=== PATIENT | female | born 1955 | race Caucasian/White ===

== ENCOUNTER 2017-03-14 08:01 | Outpatient (CLI) | payer OTHER | END 2017-03-14 13:26 | disposition home or self-care (01) | LOC: LAB 08:01 | DX: C50.112 Malignant neoplasm of central portion of left female breast (principal); Z85.3 Personal history of malignant neoplasm of breast; D51.3 Other dietary vitamin B12 deficiency anemia; K21.0 Gastro-esophageal reflux disease with esophagitis; E55.9 Vitamin D deficiency, unspecified ==

== ENCOUNTER 2017-03-19 07:36 | Outpatient (CLI) | payer OTHER | END 2017-03-19 15:00 | disposition home or self-care (01) | LOC: SONOGRAMA 07:36 | DX: E03.8 Other specified hypothyroidism (principal) ==

== ENCOUNTER 2017-04-09 07:20 | Outpatient (CLI) | payer OTHER | END 2017-04-09 15:00 | disposition home or self-care (01) | LOC: RAD 07:20 → LAB 07:20 → RAD 15:00 | DX: Z01.818 Encounter for other preprocedural examination (principal) ==

== ENCOUNTER 2017-04-09 07:21 | Outpatient (CLI) | payer OTHER | END 2017-04-09 15:00 | disposition home or self-care (01) | LOC: LAB 07:21 | DX: Z01.818 Encounter for other preprocedural examination (principal); C73 Malignant neoplasm of thyroid gland; D68.9 Coagulation defect, unspecified ==

== ENCOUNTER 2017-04-30 07:58 | Outpatient (CLI) | payer OTHER | END 2017-04-30 08:08 | disposition home or self-care (01) | LOC: LAB 07:58 | DX: C73 Malignant neoplasm of thyroid gland (principal); C50.112 Malignant neoplasm of central portion of left female breast; K21.0 Gastro-esophageal reflux disease with esophagitis; E55.9 Vitamin D deficiency, unspecified; E03.8 Other specified hypothyroidism; D51.3 Other dietary vitamin B12 deficiency anemia; D50.8 Other iron deficiency anemias; I10 Essential (primary) hypertension; Z85.3 Personal history of malignant neoplasm of breast ==

== ENCOUNTER 2017-05-27 07:04 | Outpatient (CLI) | payer OTHER | END 2017-05-27 07:10 | disposition home or self-care (01) | LOC: LAB 07:04 | DX: C73 Malignant neoplasm of thyroid gland (principal); E03.9 Hypothyroidism, unspecified ==

== ENCOUNTER 2017-06-13 07:42 | Outpatient (CLI) | payer OTHER | END 2017-06-13 10:55 | disposition home or self-care (01) | LOC: LAB 07:42 | DX: C73 Malignant neoplasm of thyroid gland (principal); C50.112 Malignant neoplasm of central portion of left female breast; Z85.3 Personal history of malignant neoplasm of breast; D51.3 Other dietary vitamin B12 deficiency anemia; K21.0 Gastro-esophageal reflux disease with esophagitis; E55.9 Vitamin D deficiency, unspecified; D50.8 Other iron deficiency anemias; D51.8 Other vitamin B12 deficiency anemias; I10 Essential (primary) hypertension; E06.3 Autoimmune thyroiditis; R97.0 Elevated carcinoembryonic antigen [CEA]; R97.8 Other abnormal tumor markers ==

== ENCOUNTER → 2017-07-23 06:50 | Outpatient (CLI) | payer OTHER | END | disposition home or self-care (01) | LOC: LAB 06:50 | DX: C73 Malignant neoplasm of thyroid gland (principal); E89.0 Postprocedural hypothyroidism ==

== ENCOUNTER 2017-08-03 08:05 | Outpatient (CLI) | payer OTHER | END 2017-08-03 08:58 | disposition home or self-care (01) | LOC: LAB 08:05 | DX: C73 Malignant neoplasm of thyroid gland (principal); E89.0 Postprocedural hypothyroidism ==

== ENCOUNTER 2017-08-07 12:57 | Outpatient (CLI) | payer OTHER | END 2017-08-07 13:00 | disposition home or self-care (01) | LOC: NUCLEAR 12:57 | DX: C73 Malignant neoplasm of thyroid gland (principal); E89.0 Postprocedural hypothyroidism | CPT/HCPCS: 79005; A9517 ==

== ENCOUNTER 2017-08-14 10:16 | Outpatient (CLI) | payer OTHER | END 2017-08-14 15:50 | disposition home or self-care (01) | LOC: NUCLEAR 10:16 | DX: C73 Malignant neoplasm of thyroid gland (principal); E89.0 Postprocedural hypothyroidism ==

== ENCOUNTER 2017-09-12 08:28 | Outpatient (CLI) | payer OTHER | END 2017-09-12 08:32 | disposition home or self-care (01) | LOC: LAB 08:28 | DX: E78.2 Mixed hyperlipidemia (principal); C73 Malignant neoplasm of thyroid gland; C50.112 Malignant neoplasm of central portion of left female breast; Z85.3 Personal history of malignant neoplasm of breast; D51.3 Other dietary vitamin B12 deficiency anemia; K21.0 Gastro-esophageal reflux disease with esophagitis; E55.9 Vitamin D deficiency, unspecified; D50.8 Other iron deficiency anemias; I10 Essential (primary) hypertension; K90.89 Other intestinal malabsorption; R97.0 Elevated carcinoembryonic antigen [CEA]; C18.9 Malignant neoplasm of colon, unspecified ==

== ENCOUNTER → 2017-12-12 08:22 | Outpatient (CLI) | payer OTHER | END | disposition home or self-care (01) | LOC: LAB 08:22 | DX: K21.0 Gastro-esophageal reflux disease with esophagitis (principal); R13.19 Other dysphagia; R10.32 Left lower quadrant pain; C73 Malignant neoplasm of thyroid gland; E89.0 Postprocedural hypothyroidism ==

== ENCOUNTER 2018-03-06 08:11 | Outpatient (CLI) | payer OTHER | END 2018-03-06 08:19 | disposition home or self-care (01) | LOC: LAB 08:11 | DX: C73 Malignant neoplasm of thyroid gland (principal); E89.0 Postprocedural hypothyroidism ==

== ENCOUNTER 2018-06-12 08:20 | Outpatient (CLI) | payer OTHER | END 2018-06-12 08:32 | disposition home or self-care (01) | LOC: LAB 08:20 | DX: C73 Malignant neoplasm of thyroid gland (principal); E89.0 Postprocedural hypothyroidism ==

== ENCOUNTER 2018-07-03 08:20 | Outpatient (CLI) | payer OTHER | END 2018-07-03 10:54 | disposition home or self-care (01) | LOC: LAB 08:20 | DX: E03.8 Other specified hypothyroidism (principal); C73 Malignant neoplasm of thyroid gland; C50.112 Malignant neoplasm of central portion of left female breast; Z85.3 Personal history of malignant neoplasm of breast; D51.3 Other dietary vitamin B12 deficiency anemia; K21.0 Gastro-esophageal reflux disease with esophagitis; E55.9 Vitamin D deficiency, unspecified; D50.8 Other iron deficiency anemias; D51.8 Other vitamin B12 deficiency anemias; I10 Essential (primary) hypertension; E78.2 Mixed hyperlipidemia; R97.0 Elevated carcinoembryonic antigen [CEA]; R97.8 Other abnormal tumor markers ==

== ENCOUNTER → 2018-07-23 07:00 | Outpatient (CLI) | payer OTHER | END | disposition home or self-care (01) | LOC: NUCLEAR 08-04 13:00 → LAB 07:00 | DX: C73 Malignant neoplasm of thyroid gland (principal); E89.0 Postprocedural hypothyroidism ==

== ENCOUNTER → 2018-11-13 08:51 | Outpatient (CLI) | payer OTHER | END | disposition home or self-care (01) | LOC: LAB 08:51 | DX: C73 Malignant neoplasm of thyroid gland (principal); C50.112 Malignant neoplasm of central portion of left female breast; Z85.3 Personal history of malignant neoplasm of breast; D51.3 Other dietary vitamin B12 deficiency anemia; K21.0 Gastro-esophageal reflux disease with esophagitis; E55.9 Vitamin D deficiency, unspecified; D50.8 Other iron deficiency anemias; D51.8 Other vitamin B12 deficiency anemias; I10 Essential (primary) hypertension; E03.8 Other specified hypothyroidism; R97.0 Elevated carcinoembryonic antigen [CEA]; R97.8 Other abnormal tumor markers ==

== ENCOUNTER → 2018-12-11 08:56 | Outpatient (CLI) | payer OTHER | END | disposition home or self-care (01) | LOC: LAB 08:56 | DX: C73 Malignant neoplasm of thyroid gland (principal); E89.0 Postprocedural hypothyroidism ==

== ENCOUNTER 2019-03-11 11:03 | Outpatient (CLI) | payer OTHER | END 2019-03-11 11:12 | disposition home or self-care (01) | LOC: NUCLEAR 11:03 | DX: M81.0 Age-related osteoporosis without current pathological fracture (principal) ==

== ENCOUNTER → 2019-03-19 07:34 | Outpatient (CLI) | payer OTHER | END | disposition home or self-care (01) | LOC: LAB 07:34 | DX: D64.89 Other specified anemias (principal); N39.0 Urinary tract infection, site not specified; R30.0 Dysuria; R10.84 Generalized abdominal pain; I10 Essential (primary) hypertension; R74.0 Nonspecific elevation of levels of transaminase and lactic acid dehydrogenase [LDH]; E03.8 Other specified hypothyroidism; R63.5 Abnormal weight gain; R63.4 Abnormal weight loss; E78.49 Other hyperlipidemia; R07.89 Other chest pain; E55.9 Vitamin D deficiency, unspecified; R80.8 Other proteinuria; Z12.11 Encounter for screening for malignant neoplasm of colon; E11.9 Type 2 diabetes mellitus without complications; E16.2 Hypoglycemia, unspecified; C73 Malignant neoplasm of thyroid gland; C50.112 Malignant neoplasm of central portion of left female breast; Z85.3 Personal history of malignant neoplasm of breast; D51.3 Other dietary vitamin B12 deficiency anemia; K21.0 Gastro-esophageal reflux disease with esophagitis; D50.8 Other iron deficiency anemias; D51.8 Other vitamin B12 deficiency anemias; C25.9 Malignant neoplasm of pancreas, unspecified; C22.9 Malignant neoplasm of liver, not specified as primary or secondary ==

== ENCOUNTER 2019-06-07 07:36 | Outpatient (CLI) | payer OTHER | END 2019-06-07 07:56 | disposition home or self-care (01) | LOC: LAB 07:36 | DX: C73 Malignant neoplasm of thyroid gland (principal); E89.0 Postprocedural hypothyroidism ==

== ENCOUNTER 2019-08-11 06:58 | Outpatient (CLI) | payer OTHER | END 2019-08-11 07:05 | disposition home or self-care (01) | LOC: LAB 06:58 | PROVIDERS: ATTEND Internal Medicine Hematology & Oncology | DX: D50.8 Other iron deficiency anemias (principal); I10 Essential (primary) hypertension; D51.8 Other vitamin B12 deficiency anemias; E55.9 Vitamin D deficiency, unspecified; E03.8 Other specified hypothyroidism; C50.919 Malignant neoplasm of unspecified site of unspecified female breast; R97.8 Other abnormal tumor markers; C25.9 Malignant neoplasm of pancreas, unspecified; R97.0 Elevated carcinoembryonic antigen [CEA]; C73 Malignant neoplasm of thyroid gland; C50.112 Malignant neoplasm of central portion of left female breast; Z85.3 Personal history of malignant neoplasm of breast; K21.0 Gastro-esophageal reflux disease with esophagitis ==

== ENCOUNTER 2019-08-12 07:04 | Outpatient (CLI) | payer OTHER | END 2019-08-12 07:12 | disposition home or self-care (01) | LOC: RAD 07:04 → MAMO-SONO 07:15 | PROVIDERS: ATTEND Internal Medicine Hematology & Oncology | DX: C73 Malignant neoplasm of thyroid gland (principal); C50.112 Malignant neoplasm of central portion of left female breast; Z85.3 Personal history of malignant neoplasm of breast; D51.3 Other dietary vitamin B12 deficiency anemia; K21.0 Gastro-esophageal reflux disease with esophagitis; E55.9 Vitamin D deficiency, unspecified; Z12.31 Encounter for screening mammogram for malignant neoplasm of breast; Z87.898 Personal history of other specified conditions ==

== ENCOUNTER 2019-08-16 08:53 | Outpatient (CLI) | payer OTHER | END 2019-08-16 09:13 | disposition home or self-care (01) | LOC: TOM 08:53 | PROVIDERS: ATTEND Internal Medicine Sports Medicine | DX: K56.600 Partial intestinal obstruction, unspecified as to cause (principal); Z86.010 Personal history of colon polyps ==

== ENCOUNTER 2019-09-14 07:00 | Outpatient (CLI) | payer OTHER | END 2019-09-14 07:04 | disposition home or self-care (01) | LOC: LAB 07:00 | PROVIDERS: ATTEND Internal Medicine | DX: E16.1 Other hypoglycemia (principal); R80.8 Other proteinuria; E78.2 Mixed hyperlipidemia; R63.5 Abnormal weight gain; E88.89 Other specified metabolic disorders; R53.81 Other malaise; R43.0 Anosmia; R30.0 Dysuria; E55.9 Vitamin D deficiency, unspecified; R19.5 Other fecal abnormalities ==

== ENCOUNTER → 2019-11-19 07:35 | Outpatient (CLI) | payer OTHER | END | disposition home or self-care (01) | LOC: LAB 07:35 | PROVIDERS: ATTEND Internal Medicine Hematology & Oncology | DX: D50.8 Other iron deficiency anemias (principal); I10 Essential (primary) hypertension; E03.8 Other specified hypothyroidism; C50.919 Malignant neoplasm of unspecified site of unspecified female breast; R97.8 Other abnormal tumor markers; R97.0 Elevated carcinoembryonic antigen [CEA]; C73 Malignant neoplasm of thyroid gland; C50.112 Malignant neoplasm of central portion of left female breast; Z85.3 Personal history of malignant neoplasm of breast; D51.3 Other dietary vitamin B12 deficiency anemia; K21.00 Gastro-esophageal reflux disease with esophagitis, without bleeding; E55.9 Vitamin D deficiency, unspecified ==

== ENCOUNTER → 2019-12-31 08:11 | Outpatient (CLI) | payer OTHER | END | disposition home or self-care (01) | LOC: LAB 08:11 | PROVIDERS: ATTEND Podiatrist Foot Surgery | DX: M21.611 Bunion of right foot (principal); M21.612 Bunion of left foot; K76.89 Other specified diseases of liver ==

== ENCOUNTER 2020-02-20 12:59 | Outpatient (CLI) | payer OTHER | END 2020-02-20 13:05 | disposition home or self-care (01) | LOC: LAB 12:59 | PROVIDERS: ATTEND Internal Medicine Sports Medicine | DX: C73 Malignant neoplasm of thyroid gland (principal); E89.0 Postprocedural hypothyroidism ==

== ENCOUNTER → 2020-03-24 | Outpatient (CLI) | payer OTHER | END | disposition home or self-care (01) | LOC: LAB 07:20 | PROVIDERS: ATTEND Internal Medicine Hematology & Oncology | DX: D50.8 Other iron deficiency anemias (principal); I10 Essential (primary) hypertension; R74.02 Elevation of levels of lactic acid dehydrogenase [LDH]; K76.89 Other specified diseases of liver; E03.8 Other specified hypothyroidism; C50.919 Malignant neoplasm of unspecified site of unspecified female breast; R97.8 Other abnormal tumor markers; R97.0 Elevated carcinoembryonic antigen [CEA]; C73 Malignant neoplasm of thyroid gland; C50.112 Malignant neoplasm of central portion of left female breast; Z85.3 Personal history of malignant neoplasm of breast; D51.3 Other dietary vitamin B12 deficiency anemia; K21.00 Gastro-esophageal reflux disease with esophagitis, without bleeding; E55.9 Vitamin D deficiency, unspecified; D64.89 Other specified anemias; N39.0 Urinary tract infection, site not specified; R30.0 Dysuria; R10.84 Generalized abdominal pain; R74.01 Elevation of levels of liver transaminase levels; R63.5 Abnormal weight gain; R63.4 Abnormal weight loss; E78.49 Other hyperlipidemia; R80.8 Other proteinuria; Z12.11 Encounter for screening for malignant neoplasm of colon; E11.9 Type 2 diabetes mellitus without complications; E16.1 Other hypoglycemia ==

== ENCOUNTER → 2020-05-15 08:33 | Outpatient (CLI) | payer OTHER | END | disposition home or self-care (01) | LOC: LAB 08:33 | PROVIDERS: ATTEND Internal Medicine Sports Medicine | DX: I10 Essential (primary) hypertension (principal); E03.8 Other specified hypothyroidism; E78.89 Other lipoprotein metabolism disorders; E11.65 Type 2 diabetes mellitus with hyperglycemia ==

== ENCOUNTER 2020-05-15 09:15 | Outpatient (CLI) | payer OTHER | END 2020-05-15 09:25 | disposition home or self-care (01) | LOC: SONOGRAMA 09:15 | PROVIDERS: ATTEND Internal Medicine Sports Medicine | DX: C73 Malignant neoplasm of thyroid gland (principal) ==

== ENCOUNTER 2020-08-22 07:47 | Outpatient (CLI) | payer OTHER | END 2020-08-22 07:55 | disposition home or self-care (01) | LOC: MAMO-SONO 07:47 | PROVIDERS: ATTEND Internal Medicine Hematology & Oncology | DX: R10.84 Generalized abdominal pain (principal); D51.3 Other dietary vitamin B12 deficiency anemia; C73 Malignant neoplasm of thyroid gland; C50.112 Malignant neoplasm of central portion of left female breast; Z85.3 Personal history of malignant neoplasm of breast; E55.9 Vitamin D deficiency, unspecified; K21.00 Gastro-esophageal reflux disease with esophagitis, without bleeding ==

== ENCOUNTER → 2020-10-26 06:24 | Outpatient (CLI) | payer OTHER | END | disposition home or self-care (01) | LOC: LAB 06:24 | PROVIDERS: ATTEND Internal Medicine Hematology & Oncology | DX: C73 Malignant neoplasm of thyroid gland (principal); K76.89 Other specified diseases of liver; D50.8 Other iron deficiency anemias; D51.8 Other vitamin B12 deficiency anemias; E55.9 Vitamin D deficiency, unspecified; E03.8 Other specified hypothyroidism; C50.919 Malignant neoplasm of unspecified site of unspecified female breast; R97.8 Other abnormal tumor markers; R97.0 Elevated carcinoembryonic antigen [CEA]; C50.112 Malignant neoplasm of central portion of left female breast; Z85.3 Personal history of malignant neoplasm of breast; D51.3 Other dietary vitamin B12 deficiency anemia; K21.00 Gastro-esophageal reflux disease with esophagitis, without bleeding; D64.89 Other specified anemias; N39.0 Urinary tract infection, site not specified; R10.84 Generalized abdominal pain; R63.5 Abnormal weight gain; R63.4 Abnormal weight loss; R80.8 Other proteinuria; R73.09 Other abnormal glucose ==

== ENCOUNTER 2020-12-05 07:13 | Outpatient (CLI) | payer OTHER | END 2020-12-05 07:14 | disposition home or self-care (01) | LOC: NUCLEAR 07:13 | PROVIDERS: ATTEND Internal Medicine Hematology & Oncology | DX: K82.9 Disease of gallbladder, unspecified (principal) | CPT/HCPCS: 78226; A9537; J2805 ==

== ENCOUNTER 2021-04-19 06:15 | Outpatient (CLI) | payer OTHER | END 2021-04-19 06:16 | disposition home or self-care (01) | LOC: LAB 06:15 | PROVIDERS: ATTEND Internal Medicine Sports Medicine | DX: C73 Malignant neoplasm of thyroid gland (principal); E89.0 Postprocedural hypothyroidism; D50.8 Other iron deficiency anemias; I10 Essential (primary) hypertension; R74.02 Elevation of levels of lactic acid dehydrogenase [LDH]; K76.89 Other specified diseases of liver; D51.8 Other vitamin B12 deficiency anemias; E55.9 Vitamin D deficiency, unspecified; C50.919 Malignant neoplasm of unspecified site of unspecified female breast; R97.8 Other abnormal tumor markers; R97.0 Elevated carcinoembryonic antigen [CEA]; C50.112 Malignant neoplasm of central portion of left female breast; D51.3 Other dietary vitamin B12 deficiency anemia; K21.00 Gastro-esophageal reflux disease with esophagitis, without bleeding; Z85.3 Personal history of malignant neoplasm of breast ==

== ENCOUNTER 2021-04-30 10:47 | Outpatient (CLI) | payer OTHER | END 2021-04-30 10:59 | disposition home or self-care (01) | LOC: SONOGRAMA 10:47 | PROVIDERS: ATTEND Internal Medicine Sports Medicine | DX: C73 Malignant neoplasm of thyroid gland (principal) ==

== ENCOUNTER 2021-07-02 06:53 | Outpatient (CLI) | payer OTHER | END 2021-07-02 07:03 | disposition home or self-care (01) | LOC: LAB 06:53 | PROVIDERS: ATTEND Internal Medicine Sports Medicine | DX: D64.9 Anemia, unspecified (principal); E11.9 Type 2 diabetes mellitus without complications; I10 Essential (primary) hypertension; E03.8 Other specified hypothyroidism; E78.2 Mixed hyperlipidemia ==

== ENCOUNTER 2021-09-05 06:54 | Outpatient (CLI) | payer OTHER | END 2021-09-05 07:00 | disposition home or self-care (01) | LOC: LAB 06:54 | PROVIDERS: ATTEND Internal Medicine Hematology & Oncology | DX: D50.8 Other iron deficiency anemias (principal); I10 Essential (primary) hypertension; R74.02 Elevation of levels of lactic acid dehydrogenase [LDH]; K76.89 Other specified diseases of liver; D51.8 Other vitamin B12 deficiency anemias; E55.9 Vitamin D deficiency, unspecified; E03.8 Other specified hypothyroidism; C50.919 Malignant neoplasm of unspecified site of unspecified female breast; R97.8 Other abnormal tumor markers; R97.0 Elevated carcinoembryonic antigen [CEA]; C73 Malignant neoplasm of thyroid gland; C50.112 Malignant neoplasm of central portion of left female breast; D51.3 Other dietary vitamin B12 deficiency anemia; K21.00 Gastro-esophageal reflux disease with esophagitis, without bleeding; Z85.3 Personal history of malignant neoplasm of breast ==

== ENCOUNTER 2022-03-22 07:37 | Outpatient (CLI) | payer OTHER | END 2022-03-22 07:39 | disposition home or self-care (01) | LOC: LAB 07:37 | PROVIDERS: ATTEND Internal Medicine Hematology & Oncology | DX: D50.8 Other iron deficiency anemias (principal); I10 Essential (primary) hypertension; R74.02 Elevation of levels of lactic acid dehydrogenase [LDH]; K76.89 Other specified diseases of liver; D51.8 Other vitamin B12 deficiency anemias; E55.9 Vitamin D deficiency, unspecified; E03.8 Other specified hypothyroidism; C50.919 Malignant neoplasm of unspecified site of unspecified female breast; R97.8 Other abnormal tumor markers; R97.0 Elevated carcinoembryonic antigen [CEA]; C73 Malignant neoplasm of thyroid gland; C50.112 Malignant neoplasm of central portion of left female breast; Z85.3 Personal history of malignant neoplasm of breast; D51.3 Other dietary vitamin B12 deficiency anemia; K21.00 Gastro-esophageal reflux disease with esophagitis, without bleeding ==

== ENCOUNTER 2022-05-24 08:01 | Outpatient (CLI) | payer OTHER | END 2022-05-24 08:04 | disposition home or self-care (01) | LOC: LAB 08:01 | PROVIDERS: ATTEND Internal Medicine Hematology & Oncology | DX: N39.0 Urinary tract infection, site not specified (principal); C73 Malignant neoplasm of thyroid gland; C50.112 Malignant neoplasm of central portion of left female breast; D51.3 Other dietary vitamin B12 deficiency anemia; K21.00 Gastro-esophageal reflux disease with esophagitis, without bleeding; E55.9 Vitamin D deficiency, unspecified ==

== ENCOUNTER → 2022-06-13 07:01 | Outpatient (CLI) | payer OTHER | END | disposition home or self-care (01) | LOC: LAB 07:01 | DX: D64.9 Anemia, unspecified (principal); N39.0 Urinary tract infection, site not specified; R30.0 Dysuria; E78.5 Hyperlipidemia, unspecified; E53.8 Deficiency of other specified B group vitamins; R80.9 Proteinuria, unspecified; Z12.11 Encounter for screening for malignant neoplasm of colon; K92.1 Melena; R73.09 Other abnormal glucose ==

== ENCOUNTER 2022-07-09 06:44 | Outpatient (CLI) | payer OTHER | END 2022-07-09 08:30 | disposition home or self-care (01) | LOC: LAB 06:44 | PROVIDERS: ATTEND Internal Medicine Sports Medicine | DX: C73 Malignant neoplasm of thyroid gland (principal); E89.0 Postprocedural hypothyroidism ==

== ENCOUNTER → 2022-09-13 08:02 | Outpatient (CLI) | payer OTHER | END | disposition home or self-care (01) | LOC: LAB 08:02 | PROVIDERS: ATTEND Internal Medicine | DX: D64.9 Anemia, unspecified (principal); N39.0 Urinary tract infection, site not specified; R30.0 Dysuria; R10.9 Unspecified abdominal pain; E53.8 Deficiency of other specified B group vitamins; R74.02 Elevation of levels of lactic acid dehydrogenase [LDH]; R80.9 Proteinuria, unspecified; R73.09 Other abnormal glucose; E78.00 Pure hypercholesterolemia, unspecified ==

== ENCOUNTER 2022-11-01 07:40 | Outpatient (CLI) | payer OTHER ==
[2022-11-01 09:41] LABS: HEMATOCRIT 35.9 % (36.0-45.00); HEMOGLOBIN 12.1 g/dL (12.0-15.00); MEAN CELL VOLUME 89.6 fL (80.00-100.00); MEAN CORPUSCULAR HEMOGLOBIN 30.1 pg (27.00-32.0); MEAN CORPUSCULAR HGB CONC 33.6 g/dl (32.0-36.0); PLATELET COUNT 207 K/uL (150-450); RED BLOOD COUNT 4.01 M/uL (4.00-6.00); RED CELL DISTRIBUTION WIDTH 14.8 % (11.5-14.5)
[2022-11-01 10:30] LABS: ALBUMIN 3.5 gm/dL (3.4-5.0); BILIRUBIN TOTAL 0.51 mg/dL (0.3-1.2); CALCIUM 8.9 mg/dL (8.5-10.1); CREATININE SERUM 0.73 mg/dL (0.55-1.02); GFR 79.28; GLOBULINA 3.6 G/DL (2.4-3.5); POTASSIUM 4.36 mEq/L (3.5-5.1); TOTAL PROTEIN 7.1 gm/dL (6.4-8.2)
[2022-11-03 11:47] LABS: FOLIC ACID > 20.00 ng/ml (4.78-20)
[2022-11-03 11:48] LABS: VITAMIN D3 25 HYDROXY 63.09 ng/ml (30-120)
== END 2022-11-01 07:41 | disposition home or self-care (01) ==
LOC: LAB 07:40
PROVIDERS: ATTEND Internal Medicine Hematology & Oncology
DX: D50.8 Other iron deficiency anemias (principal); I10 Essential (primary) hypertension; R74.02 Elevation of levels of lactic acid dehydrogenase [LDH]; K76.89 Other specified diseases of liver; D51.8 Other vitamin B12 deficiency anemias; E55.9 Vitamin D deficiency, unspecified; E03.8 Other specified hypothyroidism; C50.919 Malignant neoplasm of unspecified site of unspecified female breast; R97.8 Other abnormal tumor markers; R97.0 Elevated carcinoembryonic antigen [CEA]; C73 Malignant neoplasm of thyroid gland; C50.112 Malignant neoplasm of central portion of left female breast; Z85.3 Personal history of malignant neoplasm of breast; D51.3 Other dietary vitamin B12 deficiency anemia; K21.00 Gastro-esophageal reflux disease with esophagitis, without bleeding

== ENCOUNTER 2022-12-12 07:15 | Outpatient (CLI) | payer OTHER ==
[2022-12-12 08:20] LABS: HEMATOCRIT 36.3 % (36.0-45.00); HEMOGLOBIN 11.9 g/dL (12.0-15.00); MEAN CELL VOLUME 91.5 fL (80.00-100.00); MEAN CORPUSCULAR HEMOGLOBIN 29.9 pg (27.00-32.0); MEAN CORPUSCULAR HGB CONC 32.7 g/dl (32.0-36.0); PLATELET COUNT 231 K/uL (150-450); RED BLOOD COUNT 3.96 M/uL (4.00-6.00); RED CELL DISTRIBUTION WIDTH 14.6 % (11.5-14.5)
[2022-12-12 09:05] LABS: CALCIUM 8.7 mg/dL (8.5-10.1); CHOL HDL RATIO 3.8 (0-5.0); CREATININE SERUM 0.74 mg/dL (0.55-1.02); GFR 78.04; POTASSIUM 4.51 mEq/L (3.5-5.1); T4 FREE 1.09 NG/ML (0.76-1.46); TSH 3.02 uIU/mL (0.358-3.74)
== END 2022-12-12 07:16 | disposition home or self-care (01) ==
LOC: LAB 07:15
PROVIDERS: ATTEND Internal Medicine Sports Medicine
DX: E89.0 Postprocedural hypothyroidism (principal); D64.9 Anemia, unspecified; R10.9 Unspecified abdominal pain; I10 Essential (primary) hypertension; E78.5 Hyperlipidemia, unspecified; E55.9 Vitamin D deficiency, unspecified; Z88.0 Allergy status to penicillin

== ENCOUNTER → 2023-03-28 07:33 | Outpatient (CLI) | payer OTHER ==
[2023-03-28 10:23] LABS: HEMATOCRIT 36.4 % (36.0-45.00); HEMOGLOBIN 12.1 g/dL (12.0-15.00); MEAN CELL VOLUME 90.7 fL (80.00-100.00); MEAN CORPUSCULAR HEMOGLOBIN 30.2 pg (27.00-32.0); MEAN CORPUSCULAR HGB CONC 33.4 g/dl (32.0-36.0); PLATELET COUNT 204 K/uL (150-450); RED BLOOD COUNT 4.02 M/uL (4.00-6.00); RED CELL DISTRIBUTION WIDTH 14.8 % (11.5-14.5)
[2023-03-28 11:25] LABS: ALBUMIN 3.7 gm/dL (3.4-5.0); BILIRUBIN TOTAL 0.41 mg/dL (0.3-1.2); CALCIUM 8.7 mg/dL (8.5-10.1); CREATININE SERUM 0.7 mg/dL (0.55-1.02); GFR 82.97; GLOBULINA 3.3 G/DL (2.4-3.5); POTASSIUM 4.29 mEq/L (3.5-5.1); T4 FREE 1.11 NG/ML (0.76-1.46); TSH 1.79 uIU/mL (0.358-3.74)
[2023-03-30 11:48] LABS: FOLIC ACID 19.77 ng/ml (4.78-20); VITAMIN D3 25 HYDROXY 65.84 ng/ml (30-120)
== END | disposition home or self-care (01) ==
LOC: LAB 07:33
PROVIDERS: ATTEND Internal Medicine Hematology & Oncology
DX: C73 Malignant neoplasm of thyroid gland (principal); C50.112 Malignant neoplasm of central portion of left female breast; Z85.3 Personal history of malignant neoplasm of breast; D51.3 Other dietary vitamin B12 deficiency anemia; K21.00 Gastro-esophageal reflux disease with esophagitis, without bleeding; E55.9 Vitamin D deficiency, unspecified; D50.8 Other iron deficiency anemias; K76.89 Other specified diseases of liver; D51.8 Other vitamin B12 deficiency anemias; E03.8 Other specified hypothyroidism; R97.1 Elevated cancer antigen 125 [CA 125]

== ENCOUNTER 2023-10-19 07:31 | Outpatient (CLI) | payer OTHER ==
[2023-10-19 08:42] LABS: HEMATOCRIT 35.8 % (36.0-45.00); HEMOGLOBIN 11.7 g/dL (12.0-15.00); MEAN CELL VOLUME 93.7 fL (80.00-100.00); MEAN CORPUSCULAR HEMOGLOBIN 30.6 pg (27.00-32.0); MEAN CORPUSCULAR HGB CONC 32.7 g/dl (32.0-36.0); PLATELET COUNT 153 K/uL (150-450); RED BLOOD COUNT 3.82 M/uL (4.00-6.00)
[2023-10-19 09:41] LABS: ALBUMIN 3.5 gm/dL (3.4-5.0); BILIRUBIN TOTAL 0.5 mg/dL (0.3-1.2); CALCIUM 8.9 mg/dL (8.5-10.1); CREATININE SERUM 0.69 mg/dL (0.55-1.02); GFR 84.36; GLOBULINA 3.6 G/DL (2.4-3.5); POTASSIUM 4.6 mEq/L (3.5-5.1); TOTAL PROTEIN 7.1 gm/dL (6.4-8.2)
[2023-10-19 14:02] LABS: FOLIC ACID 17.02 ng/ml (4.78-20); VITAMIN D3 25 HYDROXY 76.16 ng/ml (30-120)
[2023-10-19 21:07] LABS: T4 FREE 1.03 NG/ML (0.76-1.46); TSH 1.82 uIU/mL (0.358-3.74)
[2023-10-20 09:11] LABS: CA 125 5.8 U/mL (0.0-38.1); CA 15-3 24.7 U/mL (0.0-25.0)
== END 2023-10-19 07:36 | disposition home or self-care (01) ==
LOC: LAB 07:31
PROVIDERS: ATTEND Internal Medicine Hematology & Oncology
DX: C73 Malignant neoplasm of thyroid gland (principal); C50.112 Malignant neoplasm of central portion of left female breast; Z85.3 Personal history of malignant neoplasm of breast; D51.3 Other dietary vitamin B12 deficiency anemia; E55.9 Vitamin D deficiency, unspecified; I10 Essential (primary) hypertension; R74.02 Elevation of levels of lactic acid dehydrogenase [LDH]; K76.89 Other specified diseases of liver; D50.8 Other iron deficiency anemias; C50.919 Malignant neoplasm of unspecified site of unspecified female breast; R97.8 Other abnormal tumor markers

== ENCOUNTER 2023-11-11 10:29 | Outpatient (CLI) | payer OTHER | END 2023-11-11 10:42 | disposition home or self-care (01) | LOC: MRI 10:29 | PROVIDERS: ATTEND Internal Medicine Hematology & Oncology | DX: C73 Malignant neoplasm of thyroid gland (principal); C50.112 Malignant neoplasm of central portion of left female breast; Z85.3 Personal history of malignant neoplasm of breast; D51.3 Other dietary vitamin B12 deficiency anemia; K21.00 Gastro-esophageal reflux disease with esophagitis, without bleeding; E55.9 Vitamin D deficiency, unspecified | CPT/HCPCS: 72196; Q9965 ==

== ENCOUNTER 2023-11-26 07:30 | Outpatient (CLI) | payer OTHER ==
[2023-11-26 08:14] LABS: HEMATOCRIT 36.1 % (36.0-45.00); HEMOGLOBIN 12.2 g/dL (12.0-15.00); MEAN CELL VOLUME 92.1 fL (80.00-100.00); MEAN CORPUSCULAR HGB CONC 33.7 g/dl (32.0-36.0); PLATELET COUNT 229 K/uL (150-450); RED BLOOD COUNT 3.93 M/uL (4.00-6.00); RED CELL DISTRIBUTION WIDTH 14.7 % (11.5-14.5)
[2023-11-26 08:43] LABS: PH,URINE 6.5 (5.0-8.0); URINE APPEARANCE Clear; URINE BILIRRUBIN Negative (NEGATIVE); URINE BLOOD Negative; URINE COLOR Yellow; URINE GLUCOSE Negative (NEGATIVE); URINE KETONE Negative (NEGATIVE); URINE LEUKOCYTE Negative; URINE NITRATE Negative; URINE PROTEIN Negative (NEGATIVE); URINE UROBILINOGEN 0.2 E.U./dl
[2023-11-26 08:47] LABS: URINE BACTERIA 20.1 uL (0.0-1933)
[2023-11-26 09:07] LABS: URINE RBC 1.6 uL (0.0-20.8); URINE WBC 0.7 uL (0.0-23.2)
[2023-11-26 09:37] LABS: ALBUMIN 3.7 gm/dL (3.4-5.0); BILIRUBIN TOTAL 0.46 mg/dL (0.3-1.2); CALCIUM 8.7 mg/dL (8.5-10.1); CHOL HDL RATIO 3.6 (0-5.0); CREATININE SERUM 0.68 mg/dL (0.55-1.02); GFR 85.79; GLOBULINA 3.5 G/DL (2.4-3.5); POTASSIUM 4.51 mEq/L (3.5-5.1); TOTAL PROTEIN 7.2 gm/dL (6.4-8.2); TSH 3.72 uIU/mL (0.358-3.74)
[2023-11-26 09:57] LABS: C-REACTIVE PROTEIN 0.71 MG/DL (0.00-0.29)
== END 2023-11-26 07:34 | disposition home or self-care (01) ==
LOC: LAB 07:30
PROVIDERS: ATTEND Internal Medicine
DX: D64.9 Anemia, unspecified (principal); N39.0 Urinary tract infection, site not specified; R10.9 Unspecified abdominal pain; E03.9 Hypothyroidism, unspecified; E78.5 Hyperlipidemia, unspecified; R07.9 Chest pain, unspecified; E11.9 Type 2 diabetes mellitus without complications; I10 Essential (primary) hypertension

== ENCOUNTER 2024-01-01 07:30 | Outpatient (CLI) | payer OTHER ==
[2024-01-01 08:36] LABS: HEMATOCRIT 35.9 % (36.0-45.00); HEMOGLOBIN 11.9 g/dL (12.0-15.00); MEAN CELL VOLUME 93.7 fL (80.00-100.00); MEAN CORPUSCULAR HGB CONC 33.1 g/dl (32.0-36.0); PLATELET COUNT 217 K/uL (150-450); RED BLOOD COUNT 3.83 M/uL (4.00-6.00); RED CELL DISTRIBUTION WIDTH 14.9 % (11.5-14.5)
[2024-01-01 08:39] LABS: URINE APPEARANCE Clear; URINE BILIRRUBIN Negative (NEGATIVE); URINE BLOOD Negative; URINE COLOR Yellow; URINE GLUCOSE Negative (NEGATIVE); URINE KETONE Negative (NEGATIVE); URINE LEUKOCYTE Negative; URINE NITRATE Negative; URINE PROTEIN Negative (NEGATIVE); URINE UROBILINOGEN 0.2 E.U./dl
[2024-01-01 08:46] LABS: URINE BACTERIA 2.5 uL (0.0-1933); URINE EPITHELIAL CELLS 0.6 uL (0.0-38.8); URINE RBC 1.5 uL (0.0-20.8); URINE WBC 0.3 uL (0.0-23.2)
[2024-01-01 09:29] LABS: ALBUMIN 3.7 gm/dL (3.4-5.0); BILIRUBIN TOTAL 0.4 mg/dL (0.3-1.2); CALCIUM 8.6 mg/dL (8.5-10.1); CHOL HDL RATIO 2.7 (0-5.0); CREATININE SERUM 0.68 mg/dL (0.55-1.02); GFR 85.54; GLOBULINA 3.4 G/DL (2.4-3.5); POTASSIUM 4.54 mEq/L (3.5-5.1); T4 FREE 1.05 NG/ML (0.76-1.46); TOTAL PROTEIN 7.1 gm/dL (6.4-8.2); TSH 3.2 uIU/mL (0.358-3.74)
== END 2024-01-01 07:34 | disposition home or self-care (01) ==
LOC: LAB 07:30
PROVIDERS: ATTEND Internal Medicine Sports Medicine
DX: D64.9 Anemia, unspecified (principal); E11.9 Type 2 diabetes mellitus without complications; E78.2 Mixed hyperlipidemia; I10 Essential (primary) hypertension; E03.8 Other specified hypothyroidism; E55.9 Vitamin D deficiency, unspecified

== ENCOUNTER → 2024-06-03 08:32 | Outpatient (CLI) | payer OTHER ==
[2024-06-03 09:31] LABS: HEMATOCRIT 36.4 % (36.0-45.00); HEMOGLOBIN 12.1 g/dL (12.0-15.00); MEAN CELL VOLUME 93.3 fL (80.00-100.00); MEAN CORPUSCULAR HGB CONC 33.3 g/dl (32.0-36.0); PLATELET COUNT 207 K/uL (150-450); RED CELL DISTRIBUTION WIDTH 14.5 % (11.5-14.5)
[2024-06-03 10:10] LABS: ALBUMIN 3.8 gm/dL (3.4-5.0); BILIRUBIN TOTAL 0.4 mg/dL (0.3-1.2); CALCIUM 8.9 mg/dL (8.5-10.1); CREATININE SERUM 0.71 mg/dL (0.55-1.02); GFR 81.38; GLOBULINA 3.7 G/DL (2.4-3.5); POTASSIUM 5.14 mEq/L (3.5-5.1); T4 FREE 1.11 NG/ML (0.76-1.46); TOTAL PROTEIN 7.5 gm/dL (6.4-8.2); TSH 1.33 uIU/mL (0.358-3.74)
[2024-06-03 10:33] LABS: FOLIC ACID 19.84 ng/ml (4.78-20); VITAMIN D3 25 HYDROXY 90.52 ng/ml (30-120)
[2024-06-04 09:07] LABS: CA 125 11.6 U/mL (0.0-38.1); CA 15-3 25.7 U/mL (0.0-25.0); CA 19-9 7 U/mL (0-35)
== END | disposition home or self-care (01) ==
LOC: LAB 08:32
PROVIDERS: ATTEND Internal Medicine Hematology & Oncology
DX: C73 Malignant neoplasm of thyroid gland (principal); C50.112 Malignant neoplasm of central portion of left female breast; Z85.3 Personal history of malignant neoplasm of breast; D51.3 Other dietary vitamin B12 deficiency anemia; E55.9 Vitamin D deficiency, unspecified; D50.8 Other iron deficiency anemias; I10 Essential (primary) hypertension; R74.02 Elevation of levels of lactic acid dehydrogenase [LDH]; K76.89 Other specified diseases of liver; D51.8 Other vitamin B12 deficiency anemias; C50.919 Malignant neoplasm of unspecified site of unspecified female breast; R97.8 Other abnormal tumor markers; C56.9 Malignant neoplasm of unspecified ovary; R97.1 Elevated cancer antigen 125 [CA 125]; R97.0 Elevated carcinoembryonic antigen [CEA]; E78.00 Pure hypercholesterolemia, unspecified

== ENCOUNTER 2024-06-09 09:23 | Outpatient (CLI) | payer OTHER | END 2024-06-09 09:24 | disposition home or self-care (01) | LOC: NUCLEAR 09:23 | PROVIDERS: ATTEND Internal Medicine Hematology & Oncology | DX: K82.9 Disease of gallbladder, unspecified (principal) | CPT/HCPCS: 78227; A9537 ==

== ENCOUNTER 2024-08-25 07:47 | Outpatient (CLI) | payer OTHER | END 2024-08-25 07:58 | disposition home or self-care (01) | LOC: TOM 07:47 | PROVIDERS: ATTEND Internal Medicine Gastroenterology | DX: D13.5 Benign neoplasm of extrahepatic bile ducts (principal); K22.2 Esophageal obstruction; K31.7 Polyp of stomach and duodenum; K21.00 Gastro-esophageal reflux disease with esophagitis, without bleeding; Z86.0101 Personal history of adenomatous and serrated colon polyps; K56.600 Partial intestinal obstruction, unspecified as to cause ==

== ENCOUNTER → 2024-11-12 07:47 | Outpatient (CLI) | payer OTHER ==
[2024-11-12 10:52] LABS: BASO % 1.1 % (0.1-1.2); EOS # 0.05 (0.04-0.54); EOS % 1.1 % (0.7-7.0); LYMPH # 1.83 (1.18-3.74); LYMPH % 40.4 % (19.3-53.1); MEAN PLATELET VOLUME 13.10 fl (9.4-12.4); MONO # 0.39 (0.24-0.82); MONO % 8.6 % (4.7-12.5); NEUT # 2.15 (1.56-6.13); NEUT % 47.5 % (34.0-71.1); RED CELL DISTRIBUTION WIDTH 13.1 % (11.6-14.4)
[2024-11-12 11:35] LABS: ALT/SGPT 21.0 U/L (12-78); AST/SGOT 15.0 U/L (15-37); BILIRUBIN TOTAL 0.49 mg/dL (0.3-1.2); BUN CREA RATIO 18.0 (7.0-25.0); CREATININE SERUM 0.67 mg/dL (0.55-1.02); FE 77.0 ug/dl (50-170); GFR 87.01; GLOBULINA 3.6 G/DL (2.4-3.5); GLUCOSE FASTING 80.0 mg/dL (65-100); LDH 168.0 U/L (84-246); OSMOLALITY SERUM 280.0 MOSM/KG (275-295)
[2024-11-14 15:20] LABS: FOLIC ACID 13.72 ng/ml (4.78-20); VITAMIN D3 25 HYDROXY 70.96 ng/ml (30-120)
[2024-11-15 09:08] LABS: CA 125 7.9 U/mL (0.0-38.1); CA 15-3 26.8 U/mL (0.0-25.0); CA 19-9 6.0 U/mL (0-35)
== END | disposition home or self-care (01) ==
LOC: LAB 07:47
PROVIDERS: ATTEND Internal Medicine Hematology & Oncology
DX: C73 Malignant neoplasm of thyroid gland (principal); C50.112 Malignant neoplasm of central portion of left female breast; Z85.3 Personal history of malignant neoplasm of breast; D51.3 Other dietary vitamin B12 deficiency anemia; K21.00 Gastro-esophageal reflux disease with esophagitis, without bleeding; E55.9 Vitamin D deficiency, unspecified; D50.8 Other iron deficiency anemias; I10 Essential (primary) hypertension; R74.02 Elevation of levels of lactic acid dehydrogenase [LDH]; K76.89 Other specified diseases of liver; C50.919 Malignant neoplasm of unspecified site of unspecified female breast; C25.9 Malignant neoplasm of pancreas, unspecified; C56.9 Malignant neoplasm of unspecified ovary; R97.0 Elevated carcinoembryonic antigen [CEA]

== ENCOUNTER → 2024-12-08 07:01 | Outpatient (CLI) | payer OTHER ==
[2024-12-08 08:06] LABS: URINE APPEARANCE Clear; URINE BILIRRUBIN Negative (NEGATIVE); URINE BLOOD Negative; URINE COLOR Yellow; URINE GLUCOSE Negative (NEGATIVE); URINE KETONE Negative (NEGATIVE); URINE LEUKOCYTE Negative; URINE NITRATE Negative; URINE PROTEIN Negative (NEGATIVE); URINE UROBILINOGEN 0.2 E.U./dl
[2024-12-08 08:47] LABS: URINE BACTERIA 1.1 uL (0.0-1933); URINE CAST 0.00 uL (0.0-1.40); URINE EPITHELIAL CELLS 0.3 uL (0.0-38.8); URINE RBC 0.5 uL (0.0-20.8); URINE WBC 0.1 uL (0.0-23.2)
[2024-12-08 09:07] LABS: BASO % 1.2 % (0.1-1.2); EOS # 0.06 (0.04-0.54); EOS % 1.4 % (0.7-7.0); LYMPH # 1.79 (1.18-3.74); LYMPH % 41.2 % (19.3-53.1); MEAN PLATELET VOLUME 13.30 fl (9.4-12.4); MONO # 0.42 (0.24-0.82); MONO % 9.7 % (4.7-12.5); NEUT # 1.99 (1.56-6.13); NEUT % 45.8 % (34.0-71.1); RED CELL DISTRIBUTION WIDTH 13.2 % (11.6-14.4)
[2024-12-08 09:54] LABS: ALT/SGPT 22.0 U/L (12-78); AST/SGOT 18.0 U/L (15-37); BILIRUBIN TOTAL 0.47 mg/dL (0.3-1.2); BUN CREA RATIO 21.0 (7.0-25.0); CHOL HDL RATIO 3.4 (0-5.0); CREATININE SERUM 0.67 mg/dL (0.55-1.02); GFR 87.01; GLOBULINA 3.7 G/DL (2.4-3.5); GLUCOSE FASTING 91.0 mg/dL (65-100); HDL 55.0 mg/dl (40-60); LDL 115.0 mg/dl (0-130); OSMOLALITY SERUM 281.0 MOSM/KG (275-295); T4 FREE 1.16 NG/ML (0.76-1.46); TSH 0.484 uIU/mL (0.358-3.74); VLDL 17.0 (0-39)
== END | disposition home or self-care (01) ==
LOC: LAB 07:01
PROVIDERS: ATTEND Internal Medicine Sports Medicine
DX: D64.9 Anemia, unspecified (principal); N39.0 Urinary tract infection, site not specified; R30.0 Dysuria; R10.9 Unspecified abdominal pain; E78.5 Hyperlipidemia, unspecified; R80.9 Proteinuria, unspecified; E11.9 Type 2 diabetes mellitus without complications; E78.2 Mixed hyperlipidemia; I10 Essential (primary) hypertension; E03.8 Other specified hypothyroidism